=== PATIENT | female | born 1995 | race Caucasian/White ===

== ENCOUNTER → 2017-12-28 | Outpatient (CLI) | payer BC | LOC: M RAD 07:18 | DX: K82.9 Disease of gallbladder, unspecified (principal) | CPT/HCPCS: J2805 ==

== ENCOUNTER 2018-02-04 08:46 | Day surgery (SDC) | payer BC ==
[~2018-02-04 08:46] MED LIST: LIDOCAINE 2% INJ 100 MG/5 ML SDV (FOR ANES.) As Ordered; PROPOFOL 200 MG/20 ML VIAL As Ordered
[2018-02-04] MEDS: NS 1,000 ML IV (10:10)
[2018-02-04] MEDS ORDERED: PROPOFOL 200 MG/20 ML VIAL As Ordered (10:58)
== END 2018-02-04 12:01 | disposition home or self-care (01) ==
LOC: M OPP 08:46
DX: K21.9 Gastro-esophageal reflux disease without esophagitis (principal); R10.11 Right upper quadrant pain; R10.13 Epigastric pain; K29.70 Gastritis, unspecified, without bleeding; K58.9 Irritable bowel syndrome, unspecified; Z79.899 Other long term (current) drug therapy
CPT/HCPCS: 43239

== ENCOUNTER 2023-07-18 11:25 | Emergency (ER) | payer BC ==
[~2023-07-18] VITALS: Ht 165.1 cm; Wt 140.0 kg
[~2023-07-18 11:25] MED LIST changes: -LIDOCAINE 2% INJ 100 MG/5 ML SDV (FOR ANES.) As Ordered; -PROPOFOL 200 MG/20 ML VIAL As Ordered; +RANI150T PO; +TRI-TAB PO
[2023-07-18] MEDS ORDERED: PARA1IUD IU (11:42)
[2023-07-18] MEDS ORDERED: PROP60TA14 PO (11:42)
[2023-07-18 11:57] LABS: HEMATOCRIT 39.5 % (36.0-47.0); MEAN CORPUSCULAR HGB CONC 32.9 g/dl (32.0-36.5); MEAN CORPUSCULAR VOLUME 82.1 fl (80.0-96.0); PLATELET COUNT, AUTOMATED 142 10^3/uL (150-450); RED BLOOD COUNT 4.81 10^6/uL (4.00-5.40); WHITE BLOOD COUNT 3.5 10^3/uL (4.0-10.0)
[2023-07-18 12:11] LABS: ATYPICAL LYMPH 7 % (0-5); EOSINOPHILS 1 % (0-3); LYMPHOCYTES 20 % (16-44); MONOCYTES 9 % (0-5); NEUTROPHILS 63 % (28-66)
[2023-07-18 12:12] LABS: ANISOCYTOSIS 1+; PLATELET ESTIMATE NORMAL (NORMAL); POIKILOCYTOSIS 1+
[2023-07-18 12:22] LABS: ALBUMIN 3.5 G/DL (3.2-5.2); ALKALINE PHOSPHATASE 107 U/L (46-116); ALT/SGPT 63 U/L (7.0-40); AST/SGOT 39 U/L (<34); BILIRUBIN,TOTAL 0.5 MG/DL (0.3-1.2); BLOOD UREA NITROGEN 9 MG/DL (9-23); CALCIUM LEVEL 9.2 MG/DL (8.5-10.1); CARBON DIOXIDE LEVEL 26 MMOL/L (20-31); CHLORIDE LEVEL 105 MMOL/L (98-107); CREATININE FOR GFR 0.64 MG/DL (0.55-1.30); GLOMERULAR FILTRATION RATE > 60.0 (>60); GLUCOSE, FASTING 91 MG/DL (60-100); POTASSIUM SERUM 4.6 MMOL/L (3.5-5.1); SODIUM LEVEL 139 MMOL/L (136-145); TOTAL PROTEIN 6.8 G/DL (5.7-8.2)
[2023-07-18 15:13] LABS: CK-MB VALUE MASS < 1.0 NG/ML (<3.6); HCG, SERUM QUANTITATIVE < 2.6 MIU/ML (<4.2)
[2023-07-18 15:21] LABS: CPK CREATINE PHOSPHOKINASE 58 U/L (34-145); MB/CK RELATIVE INDEX 1.72 (< OR =4)
[2023-07-18] MEDS ORDERED: KETOROLAC 30 MG/ML 1ML VIAL IV ONE (15:25)
[2023-07-18] MEDS ORDERED: ISOVUE-370 76% 100ML VIAL As Ordered ONE (15:36)
[2023-07-18] MEDS ORDERED: SUCR1SS PO (16:38)
[2023-07-18] MEDS ORDERED: SUCRALFATE SUSP 1GM/10ML UD PO ONE (16:40)
[2023-07-18 17:01] VITALS: BP 130/69; TEMP 97.9; O2SAT 97
== END 2023-07-18 18:06 | disposition home or self-care (01) ==
LOC: M ED 11:25
DX: K29.70 Gastritis, unspecified, without bleeding (principal); R07.89 Other chest pain; R16.2 Hepatomegaly with splenomegaly, not elsewhere classified; I10 Essential (primary) hypertension; Z79.899 Other long term (current) drug therapy
CPT/HCPCS: 71275; 74177; 80053; 82550; 82553; 84484; 84702; 85025; 85652; 86140; 93005; 96374; 99285; J1885; Q9967